=== PATIENT | male | born 1985 | race Caucasian/White ===

== ENCOUNTER 2019-01-20 13:45 | Emergency (ER) | payer OTHER ==
[2019-01-20 14:04] VITALS: BP 148/78
[2019-01-20] MEDS ORDERED: cefTRIAXone SOD 1,000 MG VL IM ONE (15:00)
== END 2019-01-20 15:43 | disposition home or self-care (01) ==
LOC: ER 13:53 → EDSEX 13:53 → ER 15:40
DX: L03.116 Cellulitis of left lower limb (principal)
CPT/HCPCS: 96372